=== PATIENT | male | born 1980 | race Two or more races ===

== ENCOUNTER 2021-09-02 20:04 | Emergency (ER) | payer SELFPAY ==
[~2021-09-02] VITALS: Ht 182.9 cm; Wt 99.8 kg
[2021-09-02 20:05] VITALS: BP 146/90
== END 2021-09-03 00:35 | disposition left against medical advice (07) ==
LOC: EDBD 20:04 → ER 20:09
DX: T40.411A Poisoning by fentanyl or fentanyl analogs, accidental (unintentional), initial encounter (principal); F17.210 Nicotine dependence, cigarettes, uncomplicated; F12.10 Cannabis abuse, uncomplicated; Y92.89 Other specified places as the place of occurrence of the external cause; Z53.29 Procedure and treatment not carried out because of patient's decision for other reasons
CPT/HCPCS: 71045